=== PATIENT | female | born 1985 | race African-American/Black ===

== ENCOUNTER 2023-05-11 14:52 | Emergency (ER) | payer OTHER, SELFPAY ==
[2023-05-11 15:00] VITALS: BP 146/83
[2023-05-11 15:21] LABS: % Basophils 1.1 % (0-2); % Eosinophils 1.1 % (0-6); % Immature Granulocytes 0.2 % (0-0.5); % Lymphocytes 47.7 % (20.5-51.1); % Monocytes 11.8 % (1.7-9.3); % Neutrophils 38.1 % (42.2-75.2); Absolute Basophils 0.1 10^3/uL (0-0.2); Absolute Eosinophils 0.1 10^3/uL (0-0.7); Absolute Lymphocytes 2.3 10^3/uL (1.2-3.4); Absolute Monocytes 0.6 10^3/uL (0.1-0.6); Absolute Neutrophils 1.8 10^3/uL (1.4-6.5); Hematocrit 38.5 % (37.0-47.0); Hemoglobin 12.7 g/dL (12.0-16.0); Mean Corpuscular Hgb 27.9 pg (27.0-31.0); Mean Corpuscular Volume 84.6 fL (81.0-99.0); Mean Platelet Volume 10.2 fL (7.4-10.4); Nucleated Red Blood Cells % 0 %; Platelet Count 233 10^3/uL (130-400); Red Blood Cell Count 4.55 10^6/uL (4.20-5.40); Red Cell Dist. Width 14.3 % (11.5-14.5); White Blood Cell Count 4.8 10^3/uL (4.8-10.8)
[2023-05-11 15:32] LABS: ALT (SGPT) 14 U/L (0-35); AST (SGOT) 19 U/L (14-36); Albumin 4.4 g/dl (3.5-5.0); Alkaline Phosphatase 60 U/L (38-126); Blood Urea Nitrogen 12 mg/dl (7-17); Calcium 9.7 mg/dl (8.4-10.2); Carbon Dioxide 25 mmol/L (22-30); Chloride 103 mmol/L (98-107); Glucose 100 mg/dl (70-99); Potassium 3.7 mmol/L (3.5-5.1); Sodium 135 mmol/L (135-145); Total Bilirubin 0.7 mg/dl (0.2-1.3); Total Protein 7.6 g/dl (6.3-8.2); eGFR > 60.00
[2023-05-11 15:42] LABS: Troponin I < 0.012 ng/ml
[2023-05-11 16:01] VITALS: BP 114/72
[2023-05-11 16:44] LABS: D-Dimer 0.63 ug/mlFEU (0.00-0.50)
[2023-05-11 17:57] LABS: HCG, Serum Qualitative Screen Negative
--- NOTE | 2023-05-11 20:14 | ED.GENMED ---
History of Present Illness
General
Chief Complaint: Chest Pain
Source: patient
Exam Limitations: none
Time Seen by Provider: 05/11/23 16:03
Nursing documentation reviewed up to this point in time: agreed with
Travel History
Have you had any contact with someone who has COVID-19?: No
Do you have any symptoms of coronavirus? Fever > 100 degrees, chills, cough, shortness of breath, sore throat, loss of taste or smell, muscle aches, or headache?: No
History of Present Illness
History of Present Illness:
Patient to ED with chest pain x 2 days. States pain is constant, no aggravating or alleviating factors. No SOB or cough. Also complains of bilateral calf pain. Brought to ED by family for eval.
Past History
Past History
ED Past Medical History: None
ED Past Surgical History: None
Review of Systems
Review of Systems
Allergies reviewed?: Yes
All Other Systems: ROS reviewed and negative except as documented in HPI and ROS
Constitutional: Reports no symptoms
EENT: Reports no symptoms
Respiratory: Reports no symptoms
Cardiac: Reports chest pain
ABD/GI: Reports no symptoms
: Reports no symptoms
Musculoskeletal: Reports other (bilateral calf pain)
Skin: Reports no symptoms
Neurological: Reports no symptoms
Psychiatric: Reports no symptoms
Phy Exam
General Physical Exam
General Presentation: well appearing and no apparent distress
General age: appears stated age
General Skin: warm and dry
General Habitus: normal
General Mental: alert
Cardiovascular Exam
Cardiovascular Exam: regular rate/rhythm and no edema
Pulmonary Exam
Pulmonary Exam: lungs clear, no respiratory distress and chest non tender
Musculoskeletal Exam
Musculoskeletal Exam: full ROM, no edema and neuro vasc intact
Skin Exam
Skin Exam: normal color, warm/dry and no rash
Psychiatric Exam
Psychiatric Exam: normal mood/affect
Scores
Heart Score for Chest Pain Patients
STEMI patient?: No
History: Slightly or Non-Suspicious
ECG: Normal
Age: </= 45 years
Risk Factors: No Risk Factors
Troponin: </= Normal Limit
Heart Score for Chest Pain Patients: 0
Heart Score Risk: 2.5% MACE over next 6 weeks
Course
Orders/Labs/Results
Orders:
Orders
05/11/23 14:55
EKG [Electrocardiogram (*1)] Urgent
Reason for Study: Chest Pain
05/11/23 14:56
EKG- Treatment ONCE
05/11/23 15:09
Complete Blood Count/With Diff Urgent
Comprehensive Metabolic Panel Urgent
HCG, Serum Qualitative Screen Urgent
Comment: ADD ON
Troponin I Urgent
05/11/23 16:13
US Periph Venous LOWER Ext Juan Urgent
Comment:
Reason For Exam: calf pain, chest pain
05/11/23 16:20
D-Dimer Urgent
05/11/23 16:55
Add On- LAB Urgent
Tests Added?: Serum HCG qualitative
05/11/23 16:57
CT Chest Pe Study Urgent
Comment:
Reason For Exam: chest pain, elevated ddimer
05/11/23 17:14
Add On- LAB Urgent
Tests Added?: Serum HCG qualitative.
Abnormal Lab Results
05/11/23 05/11/23
15:09 16:20
Neutrophils % 38.1 L %
(42.2-75.2)
Monocytes % 11.8 H %
(1.7-9.3)
D-Dimer 0.63 H ug/mlFEU
(0.00-0.50)
Glucose 100 H mg/dl
(70-99)
03/26/24 15:09
05/11/23 15:09
Vital Signs
Initial and Last Documented VS:
Initial Vital Signs
Temp Pulse Resp BP Pulse Ox
98.1 F 90 18 146/83 100
05/11/23 15:00 05/11/23 15:00 05/11/23 15:00 05/11/23 15:00 05/11/23 15:00
Last Documented Vital Signs
Temp Pulse Resp BP Pulse Ox
98.1 F 85 22 114/72 98
05/11/23 15:00 05/11/23 16:15 05/11/23 16:15 05/11/23 16:01 05/11/23 16:02
*Radiology
Radiology exam reviewed: radiology read reviewed
*Pulse Oximetry
Patient hypoxic: no
*Critical Care Note
Total Time (30-74mins, 75-104mins- exclusive of procedures): Not Applicable
ED Attending Note
-
Portions of this chart may have been created with voice recognition software.� Occasional wrong word or��sound alike� substitutions may have occurred due to the inherent limitations of voice recognition software.
Discharge Plan
Departure
Patient Disposition: Home (Routine Discharge)
Date of Disposition: 05/11/23
Time of Disposition: 20:11
Patient with high blood pressure during this ER visit?: No
Condition: Good
Covid-19: Not Applicable
Discharge Problem:
Chest pain
Instructions: Chest Pain That Is Not Caused by the Heart (DC), Chest Pain PCP Follow Up
Prescriptions:
New
(DME) Relief Knee Close Toe Stocking Misc
See Rx Instructions .ROUTE Qty: 2 0RF
Rx Instructions:
As directed
No Action
acetaminophen [Pain Relief ES (acetaminophen)] 500 mg Tablet
1,000 mg PO Q6HPRN PRN (Reason: pain) Qty: 0 0RF
ibuprofen 600 mg Tablet
600 mg PO Q6HPRN PRN (Reason: cramping/pain) Qty: 0 0RF
doxycycline monohydrate 100 mg capsule
100 mg PO DAILY Qty: 2 0RF
Rx Instructions:
take both tablets at once, 12 hours after your surgery
Referrals:
NONE,* [Family Provider] -
Activity Restrictions/Additional Instructions:
Follow up with your family doctor
Interventions
Interventions:
*Risk Screen - Suicide Last Done: 05/11/23 14:57
*General Assessment Last Done: 05/11/23 14:57
*Neglect/Abuse Screening Last Done: 05/11/23 14:57
*ED COVID-19 Vaccine History Last Done: 05/11/23 14:57
ED- Cardiac Assessment Last Done: 05/11/23 16:40
[2023-05-11 20:25] VITALS: BP 139/85
== END 2023-05-11 20:31 | disposition home or self-care (01) ==
LOC: EMR 14:52
PROVIDERS: Nurse Practitioner; EMERGENCY PHYSICIAN Emergency Medicine
DX: R07.89 Other chest pain (principal); M79.662 Pain in left lower leg; M79.661 Pain in right lower leg
CPT/HCPCS: 99285; 71275; 80053; 84484; 84703; 85025; 85379; 93005; 93970; Q9967